=== PATIENT | female | born 1975 | race Two or more races ===

== ENCOUNTER 2024-04-13 12:02 | Emergency (ER) | payer OTHER ==
[~2024-04-13] VITALS: Ht 157.5 cm; Wt 83.7 kg
[2024-04-13 13:44] VITALS: PULSE 19; RESP 19; O2SAT 97
[2024-04-13] MEDS ORDERED: KETOROLAC TROMETH 60MG/2ML VIAL IM ONE (14:00)
[2024-04-13] MEDS: ACETAMINOPHEN 500 MG TAB PO ONE (14:14)
[2024-04-13 14:27] VITALS: BP 120/76; PULSE 92; RESP 16; TEMP 98.9; O2SAT 98
[2024-04-13] MEDS ORDERED: ACET-1080 PO (14:39)
[2024-04-13] MEDS ORDERED: METH-1182 PO (14:39)
== END 2024-04-13 14:48 | disposition home or self-care (01) ==
LOC: ER 12:02
DX: S16.1XXA Strain of muscle, fascia and tendon at neck level, initial encounter (principal); S39.012A Strain of muscle, fascia and tendon of lower back, initial encounter; Z79.899 Other long term (current) drug therapy; V43.52XA Car driver injured in collision with other type car in traffic accident, initial encounter; Y93.I9 Activity, other involving external motion; Y92.89 Other specified places as the place of occurrence of the external cause; Y99.0 Civilian activity done for income or pay
CPT/HCPCS: 72040; 72100; J1885